=== PATIENT | male | born 1955 | race Caucasian/White ===

== ENCOUNTER 2019-05-20 16:13 | Inpatient (IN) | payer MEDICARE ==
[~2019-05-20] VITALS: Ht 170.2 cm; Wt 70.0 kg
[2019-05-20 23:36] VITALS: Ht 170.2 cm; Wt 70.0 kg
[2019-05-25 07:31] VITALS: BP 119/68; PULSE 65; RESP 18
== END 2019-05-25 14:25 | DRG 574 ==
LOC: E/R 16:13 → 2NE 18:17
PROVIDERS: ADMIT Internal Medicine; ATTEND Hospitalist
PROC: 0HRMXK3 Replacement of Right Foot Skin with Nonautologous Tissue Substitute, Full Thickness, External Approach (ICD-10-PCS; principal; 2019-05-23)
PROC: 0JBQ0ZZ Excision of Right Foot Subcutaneous Tissue and Fascia, Open Approach (ICD-10-PCS; 2019-05-23)
DX: L03.115 Cellulitis of right lower limb (principal); L97.319 Non-pressure chronic ulcer of right ankle with unspecified severity; B95.7 Other staphylococcus as the cause of diseases classified elsewhere; B95.4 Other streptococcus as the cause of diseases classified elsewhere; Z59.0 Homelessness; Z87.820 Personal history of traumatic brain injury; Z91.19 Patient's noncompliance with other medical treatment and regimen
CPT/HCPCS: 36415; 71045; 73590; 73630; 80048; 80053; 80061; 81001; 82962; 83036; 83605; 83735; 84100; 84443; 84484; 85025; 85610; 85730; 87070; 87075; 87086; 93005; 93922; 96374; 96375; J1650; J2185; J2250; J2270; J2543; J2795; J3370; J3475; J7030; J7120